=== PATIENT | female | born 1965 | race Caucasian/White ===

== ENCOUNTER 2018-12-04 09:04 | Inpatient (IN) | payer OTHER ==
[~2018-12-04] VITALS: Ht 165.1 cm; Wt 104.3 kg
[~2018-12-04 09:04] MED LIST: ACETAMINOPHEN-1 EAC1 PO; AMITRIPTYLINE H10 M3 PO; ANTIBIOTIC; BACTRIM DS TAB1 EACH PO; CIPRO500 MG PO; CLARITIN10 M2; CLONIDINE PO; CYMBALTA20 MG PO; FLAGYL500 MG PO; FLEXERIL PO; HYDROCODON-ACE1 EAC7 PO; LISINOPRIL20 MG PO; PREDNISONE 10 M10 MG; PRILOSEC 10MG C10 M1 PO
[2018-12-04 09:15] VITALS: BP 157/92
[2018-12-04] MEDS ORDERED: METFORMIN HCL500 M3 PO (09:35)
[2018-12-04] MEDS ORDERED: LIPITOR20 MG PO (09:35)
[2018-12-04 09:40] LABS: URINE BILIRUBIN NEGATIVE (Negative); URINE BLOOD 3+ (Negative); URINE CLARITY CLEAR; URINE COLOR YELLOW; URINE GLUCOSE-RANDOM NEGATIVE (Negative); URINE KETONES NEGATIVE (Negative); URINE LEUKOCYTES-REFLEX NEGATIVE (Negative); URINE NITRITE-REFLEX NEGATIVE (Negative); URINE PROTEIN 1+ (Negative); URINE SPECIFIC GRAVITY 1.025 (1.005-1.030); URINE UROBILINOGEN 0.2 E.U./dl (0.2-1.0)
[2018-12-04 09:42] LABS: ABSOLUTE BASOPHILS 0.1 thou/uL (0.0-0.2); ABSOLUTE EOSINOPHILS 0.2 thou/uL (0.0-0.7); ABSOLUTE LYMPHOCYTES 2.1 thou/uL (0.8-5.3); ABSOLUTE MONOCYTES 0.4 thou/uL (0.0-1.2); ABSOLUTE NEUTROPHILS 3.2 thou/uL (1.6-8.1); BASOPHILS 1.4 %; EOSINOPHILS 2.7 %; HEMATOCRIT 35.5 % (37.0-47.0); LYMPHOCYTES 34.9 %; MCH 26.9 pg (26.0-34.0); MCHC 33.7 g/dL (28.0-37.0); MCV 79.8 fL (80.0-100.0); MONOCYTES 6.6 %; MPV 9.2 fl. (7.2-11.1); NUCLEATED RBCS 0 /100WBC; PLATELET COUNT* 330 thou/uL (150-400); POLYS 54.4 %; RBC 4.45 mil/uL (4.20-5.00); RDW-CV 15.4 % (10.5-14.5)
[2018-12-04 09:53] LABS: CALCIUM 8.7 mg/dL (8.5-10.1); CREATININE 0.8 mg/dL (0.6-1.3); POTASSIUM 4.3 mmol/L (3.5-5.1)
[2018-12-04 09:58] LABS: BACTERIA-REFLEX 1-9 Few /HPF (None Seen); CASTS None Seen /LPF (None Seen); CRYSTALS None Seen /LPF (None Seen); MUCUS None Seen strn/LPF (None Seen); SQUAMOUS 4-10 Moderate /LPF (0-3); URINE RBC >20 Many /HPF (0-2); URINE WBC-REFLEX 0-5 Rare /HPF (0-5)
[2018-12-04 09:59] LABS: ALBUMIN 3.7 g/dL (3.4-5.0); TOTAL BILIRUBIN 0.4 mg/dL (<0.1-1.0); TOTAL PROTEIN 7.7 g/dL (6.4-8.2)
--- NOTE | 2018-12-04 11:29 | NUR ---
HOSPITALIST AT BEDSIDE
[2018-12-04 14:30] VITALS: BP 172/94
--- NOTE | 2018-12-04 16:55 | OP ---
[address] [address] OPERATIVE REPORT Name: CHRISTIE GODOY Room: [place] [address] ADM IN [facility]#: [id number] Admission: 12/04/18 Attend Phys: Jalen Iglesias MD Discharge: Date of : 63 Report #: [id number] THIS REPORT FOR: //name// CC: [facility] physician/PCP Jalen Iglesias DATE OF SERVICE: 12/04/2018 PREOPERATIVE DIAGNOSIS: Right renal pelvis stone. POSTOPERATIVE DIAGNOSIS: Right renal pelvis stone. PROCEDURE: Cystourethroscopy, right retrograde pyelogram, right ureteroscopy, laser lithotripsy, basket extraction of stone fragments and right ureteral stent placement (6-Cambodian x 24 cm). SURGEON: Mabel Leong MD ANESTHESIA: General. ESTIMATED BLOOD LOSS: None. COMPLICATIONS: None. SPECIMENS: Stone. INDICATIONS FOR PROCEDURE: The patient is a 53-year-old female with a history of right flank pain. She has had this actually intermittently for months. CT scan revealed a large 1 cm right renal pelvis obstructing stone. Options were discussed and she wishes to proceed with ureteroscopy. Risks of procedure were discussed including but not limited to infection, bleeding, injury to the urethra, bladder, ureter, need for secondary procedures, stent pain, cardiopulmonary complications. She voiced understanding and wished to proceed. DESCRIPTION OF PROCEDURE: After informed consent was obtained, the patient was taken back to the operating suite and placed supine. After induction of general anesthesia, she was placed in dorsal lithotomy position. Genitalia prepped and draped in standard fashion. Rigid cystoscopy was performed. Urethra and bladder mucosa were inspected. 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 She did have a moderate cystocele. UO's were orthotopic in position. Retrograde was performed on the right side. This revealed normal ureter with a large filling defect in the renal pelvis consistent with the stone with tjzp-xx-tjsekipc hydro. Sensor wire was threaded up into the kidney. The scope was removed. Using a dual-lumen catheter, a second wire was placed. 12/24 ureteral [place] [address] OPERATIVE REPORT Name: BOSTON GODOYNDA HENRIQUE Room: [address] IN [facility].#: [id number] Admission: 12/04/18 Attend Phys: Jalen Iglesias MD Discharge: Date of : 63 Report #: [id number] wire to the proximal ureter, leaving a safety wire in place. Flexible scope was advanced up into the kidney. The stone was encountered in the renal pelvis. There was a significant edematous response in the renal pelvis from the stone. Otherwise, all calices and everything else appeared normal and no other stones were noted. The holmium laser was used to break this up and it was quite a hard stone. Pieces were extracted with a 0 tip nitinol basket. Once all large fragments had been extracted, the calices were all carefully inspected and no large fragments remaining. Anything remaining was dust-like and should be passable. The scope was backed out along with the sheath and there was no injury from the sheath. Retrograde was again performed with a dual lumen to delineate the collecting system for stent placement. There were no filling defects or extravasation. A 6-Cambodian x 24 cm double-J stent was threaded over the wire. Good curl was seen within the upper pole and good curl was seen within the bladder under direct vision, the renal pelvis was quite narrow given the edema, so I did not feel I could get a good curl in the renal pelvis by readjusting the proximal curl so I left that in the upper pole. The bladder was then drained and the scope was removed. A 5 mL of lidocaine jelly were placed per urethra for local anesthesia and a 60 mg B and O suppository was placed per rectum for postoperative discomfort. She was awoken, extubated, and taken to recovery and she will be admitted back to the floor. She can be dismissed later if pain is controlled and she is afebrile. <ELECTRONICALLY SIGNED> By: Mabel Leong MD 12/04/18 1655 1627 [id number] Leong MD /nt
--- NOTE | 2018-12-04 16:58 | EKG ---
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
[2018-12-04 20:25] VITALS: BP 150/94
[2018-12-05] VITALS: BP 122/69
[2018-12-05 04:00] VITALS: BP 130/74
[2018-12-05 05:04] LABS: HEMATOCRIT 33.7 % (37.0-47.0); MCH 26.5 pg (26.0-34.0); MCHC 32.7 g/dL (28.0-37.0); MPV 9.4 fl. (7.2-11.1); RBC 4.16 mil/uL (4.20-5.00); WBC 8.8 thou/uL (4.0-11.0)
--- NOTE | 2018-12-05 05:08 | NUR ---
PT ADMITTED TO ROOM @ 2024 FROM PACU. ALERT AND ORIENTED. VSS ON 3L 02. ORIENTED TO ROOM AND CALL LIGHT. PAIN MEDS GIVEN THIS SHIFT. RELIEF NOTED. PT SLEPT WELL THIS SHIFT. UP TO BATHROOM ON STANDBY ASSIST. LFA IV WITH NS @ 150. ON 2ND BAG OF NS. FAMILY AT BEDSIDE EARLIER THIS SHIFT. CALL LIGHT WITHIN REACH. HOURLY ROUNDINGS MADE. RAMU CONTINUE TO MONITOR.
[2018-12-05 05:14] LABS: ALBUMIN 3.2 g/dL (3.4-5.0); CALCIUM 8.8 mg/dL (8.5-10.1); MAGNESIUM 1.9 mg/dL (1.8-2.4); POTASSIUM 4.5 mmol/L (3.5-5.1); TOTAL BILIRUBIN 0.3 mg/dL (<0.1-1.0); TOTAL PROTEIN 6.9 g/dL (6.4-8.2)
[2018-12-05 07:25] VITALS: BP 133/59
[2018-12-05] MEDS ORDERED: PHENAZOPYRIDIN100 M1 PO (08:32)
[2018-12-05] MEDS ORDERED: HYDROCODON-ACE1 EAC7 PO (08:32)
[2018-12-05] MEDS ORDERED: LEVSIN0.125 MG SUBLING (08:32)
[2018-12-05 08:53] VITALS: BP 133/59
[2018-12-05] MEDS ORDERED: CIPRO500 M1 PO (11:06)
[2018-12-05 11:08] VITALS: BP 133/59
--- NOTE | 2018-12-05 11:14 | NUR ---
PRESCRIPTIONS CALLED IN FROM UROLOGY, NEW PRESCRIPTION FOR CIPRO CALLED INTO PHARMACY AND LEFT VOICEMAIL. WILL CONTINUE TO MONITOR. AWAITING PT RIDE.
[2018-12-05 11:41] VITALS: BP 133/59
--- NOTE | 2018-12-05 11:41 | NUR ---
PT IV REMOVED. PT GIVEN DISCHARGE INFORMATION, CARE NOTES, AND PRESCRIPTIONS. PRESCRIPTIONS CALLED INTO PHARMACY. PT BELONGINGS GATHERED. PT LEFT VIA WHEELCHAIR WITH NURSING STAFF TO HOME. FALL RISK PRECAUTIONS IN PLACE. HOURLY ROUNDING COMPLETED.
[2018-12-06 02:06] LABS: HEPATITIS B SURFACE AG Negative (Negative)
[2018-12-15 08:11] LABS: STONE COLOR Orange (()); STONE COMMENT Note: (()); STONE URIC ACID 100 % (()); STONE WEIGHT 100.9 mg (())
== END 2018-12-05 11:43 | disposition home or self-care (01) | DRG 661 ==
LOC: M.ERS 09:04 → M.3W 10:54 → M.TBA-ER 10:54 → M.3W 20:25
PROVIDERS: Emergency Medicine; ADMIT Internal Medicine
PROC: 0TC68ZZ Extirpation of Matter from Right Ureter, Via Natural or Artificial Opening Endoscopic (ICD-10-PCS; principal; 2018-12-04)
PROC: 0T768DZ Dilation of Right Ureter with Intraluminal Device, Via Natural or Artificial Opening Endoscopic (ICD-10-PCS; principal; 2018-12-04)
PROC: BT1D1ZZ Fluoroscopy of Right Kidney, Ureter and Bladder using Low Osmolar Contrast (ICD-10-PCS; principal; 2018-12-04)
DX: N13.6 Pyonephrosis (principal); K75.9 Inflammatory liver disease, unspecified; K90.0 Celiac disease; E66.9 Obesity, unspecified; Z68.38 Body mass index [BMI] 38.0-38.9, adult; Z90.49 Acquired absence of other specified parts of digestive tract; Z90.710 Acquired absence of both cervix and uterus; Z88.2 Allergy status to sulfonamides; Z88.8 Allergy status to other drugs, medicaments and biological substances; Z28.21 Immunization not carried out because of patient refusal; Z79.899 Other long term (current) drug therapy

== ENCOUNTER 2018-12-07 09:25 | Inpatient (IN) | payer OTHER ==
[~2018-12-07] VITALS: Ht 165.1 cm; Wt 92.7 kg
[~2018-12-07 09:25] MED LIST changes: +CIPRO500 M1 PO; +LEVSIN0.125 MG SUBLING; +LIPITOR20 MG PO; +METFORMIN HCL500 M3 PO; +PHENAZOPYRIDIN100 M1 PO
[2018-12-07 09:28] VITALS: BP 171/87
[2018-12-07 09:59] LABS: CALCIUM 9.9 mg/dL (8.5-10.1); POTASSIUM 3.7 mmol/L (3.5-5.1)
[2018-12-07 10:09] LABS: ALBUMIN 4.2 g/dL (3.4-5.0); MAGNESIUM 1.9 mg/dL (1.8-2.4); TOTAL BILIRUBIN 0.9 mg/dL (<0.1-1.0); TOTAL PROTEIN 8.6 g/dL (6.4-8.2)
[2018-12-07 10:29] LABS: ABSOLUTE BASOPHILS 0.1 thou/uL (0.0-0.2); ABSOLUTE EOSINOPHILS 0.1 thou/uL (0.0-0.7); ABSOLUTE LYMPHOCYTES 1.4 thou/uL (0.8-5.3); ABSOLUTE MONOCYTES 0.7 thou/uL (0.0-1.2); ABSOLUTE NEUTROPHILS 6.3 thou/uL (1.6-8.1); BASOPHILS 0.6 %; EOSINOPHILS 0.9 %; HEMATOCRIT 34.4 % (37.0-47.0); HEMOGLOBIN 11.7 gm/dL (12.0-15.0); MCH 27.1 pg (26.0-34.0); MCV 79.6 fL (80.0-100.0); MONOCYTES 7.8 %; MPV 8.7 fl. (7.2-11.1); NUCLEATED RBCS 0 /100WBC; PLATELET COUNT* 323 thou/uL (150-400); POLYS 73.7 %; RBC 4.32 mil/uL (4.20-5.00); RDW-CV 15.5 % (10.5-14.5); WBC 8.5 thou/uL (4.0-11.0)
[2018-12-07 11:42] LABS: URINE BILIRUBIN NEGATIVE (Negative); URINE BLOOD 3+ (Negative); URINE CLARITY CLEAR; URINE COLOR YELLOW; URINE GLUCOSE-RANDOM NEGATIVE (Negative); URINE KETONES NEGATIVE (Negative); URINE LEUKOCYTES-REFLEX NEGATIVE (Negative); URINE PROTEIN NEGATIVE (Negative); URINE SPECIFIC GRAVITY <= 1.005 (1.005-1.030); URINE UROBILINOGEN 0.2 E.U./dl (0.2-1.0)
[2018-12-07 11:43] LABS: URINE NITRITE-REFLEX POSITIVE (Negative)
[2018-12-07 11:50] LABS: CASTS None Seen /LPF (None Seen); CRYSTALS None Seen /LPF (None Seen); MUCUS None Seen strn/LPF (None Seen); SQUAMOUS 0-3 Few /LPF (0-3); URINE WBC-REFLEX 0-5 Rare /HPF (0-5)
[2018-12-07 13:21] VITALS: BP 151/82
--- NOTE | 2018-12-07 13:58 | NUR ---
PT TO ROOM VIA CART. NSR ON MONITOR. ORIENTED TO ROOM,CALL LIGHT IN REACH. DTR AT BS. ORDERS REVIEWED
[2018-12-07 14:01] VITALS: BP 138/78
--- NOTE | 2018-12-07 17:05 | NUR ---
PT UP TO UNIT THIS AFTERNOON. PT REPORTS HEADACHE CONTROLLED WITH PO MEDS. IVF INFUSING.
[2018-12-07 20:00] VITALS: BP 165/89
--- NOTE | 2018-12-07 20:00 | NUR ---
RECEIVED REPORT AND ASSUMED CARE OF PT, ASSESSMENT COMPLETED. HOB ELEVATE, STATES FEELING LIKE I CAN'T TAKE A DEEP BREATH AND DROWNING. O2 SAT 92%. REASSURANCE GIVEN. TELEMETRY ON SHOWING SR. PT STATES URINE STILL BLOOD TINGED BUT IMPROVING. WILL CONT TO MONITOR AND ASSIST NEEDED.
[2018-12-08 00:31] VITALS: BP 123/77
[2018-12-08 04:00] VITALS: BP 138/80
[2018-12-08 05:15] LABS: HEMATOCRIT 34.3 % (37.0-47.0); HEMOGLOBIN 11.5 gm/dL (12.0-15.0); MCHC 33.6 g/dL (28.0-37.0); MCV 80.6 fL (80.0-100.0); MPV 8.9 fl. (7.2-11.1); RBC 4.25 mil/uL (4.20-5.00); RDW-CV 15.6 % (10.5-14.5)
[2018-12-08 05:31] LABS: ALBUMIN 3.3 g/dL (3.4-5.0); ALKALINE PHOSPHATASE 179 U/L (46-116); ANION GAP 12 mmol/L (7-16); BUN 11 mg/dL (7-18); CALCIUM 9.1 mg/dL (8.5-10.1); CHLORIDE 102 mmol/L (98-107); CHOLESTEROL 178 mg/dL (<200); CO2 24 mmol/L (21-32); CREATININE 0.8 mg/dL (0.6-1.3); GLUCOSE 148 mg/dL (70-99); HDL CHOLESTEROL 46 mg/dL (>40); LDL CHOLESTEROL 118 mg/dL (<100); PHOSPHORUS* 4.1 mg/dL (2.5-4.9); SGOT 99 U/L (15-37); SGPT 202 U/L (30-65); SODIUM 138 mmol/L (136-145); TC:HDL 3.9 Ratio (Not establshd); TOTAL BILIRUBIN 0.6 mg/dL (<0.1-1.0); TOTAL PROTEIN 7.6 g/dL (6.4-8.2); TRIGLYCERIDE 73 mg/dL (<150); TROPONIN-I LEVEL <0.06 ng/mL (<0.06); VLDL 15 mg/dL (<40)
[2018-12-08 05:39] LABS: SERUM ASSESSMENT Clear
--- NOTE | 2018-12-08 07:04 | NUR ---
SLEPT WELL. NO CHANGE IN ASSESSMENT WITH KEEN AND FEELING LIKE IT IS DIFFICULT TO BREATH. TELEMETRY CONT TO SHOW SR. HS GOALS OF REST AND SAFETY ACHIEVED. HOURLY ROUNDING OBSERVED.
--- NOTE | 2018-12-08 07:25 | NUR ---
CHANGE OF SHIFT BEDSIDE REPORT GIVEN PATIENT SEEN AT BEDSIDE, IN BED RESTING ASSUMED PATIENT CARE
[2018-12-08 08:00] VITALS: BP 175/90
--- NOTE | 2018-12-08 10:45 | NUR ---
Pt is A&O. Resides at home alone. Active and independent. Pt has a cpap through [facility] and a neb. No hx of HH or SNF. Goal is home at dc, no needs anticipated.
[2018-12-08 12:43] VITALS: BP 146/71
[2018-12-08 15:53] VITALS: BP 142/79
--- NOTE | 2018-12-08 16:32 | EKG ---
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 12/08/18 1632 9 9 Carlos Dan MD, [facility] /EPI
--- NOTE | 2018-12-08 18:05 | EKG ---
[place] [address] ELECTROCARDIOGRAM REPORT Name: GODOYCHRISTIE Room: [address] ADM IN .R.#: [id number] Admission: 12/07/18 Attend Phys: Hany Hanna Discharge: Date of : 63 Report #: [id number] THIS REPORT FOR: //name// 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
[2018-12-08 20:00] VITALS: BP 167/81
--- NOTE | 2018-12-08 20:00 | NUR ---
RECEIVED REPORT AND ASSUMED CARE OF PT, ASSESSMENT COMPLETED. PT CONCERNED ABOUT NOT RECEIVING IV ANTIBIOTICS WAS TOLD SHE NEEDED. REASSURANCE GIVEN THAT WBC WERE WITHIN NORMAL LIMITS AND PRILIMINARY BLOOD CULTURES WERE NEG. WILL NOTIFY DR FOR ORDERS. STATES HEADACHE IS BETTER. TELEMETRY ON SHOWING SR. WILL CONT TO MONITOR AND ASSIST NEEDED.
[2018-12-09] VITALS (7 sets, daily range): BP systolic 121–132; BP diastolic 50–77
--- NOTE | 2018-12-09 05:11 | NUR ---
SLEPT WELL TONIGHT. INDEPENDENT BRP WITH STEADY GAIT. [facility] HOME CPAP MACHINE. TELEMETRY CONT TO SHOW SR. TYLENOL GIVEN AT HS FOR KEEN BUT NO REQUEST FOR FURTHER MEDS. HS GOALS OF REST AND SAFETY ACHIEVED. HOURLY ROUNDING OBSERVED.
--- NOTE | 2018-12-09 19:05 | NUR ---
ASSUMED PT CARE AT 0700, PT A&OX4, VSS, RA, CABANA ATTENDANT TRACING SINUS RHYTHM, UP AD ANA MARIA. PT CONT TO C/O MILD HEADACHE, PRN PAIN MEDS ON BOARD, TOLERATING WELL. POSSIBLE DC TOMORROW, HOURLY ROUNDING COMPLETED.
[2018-12-10] VITALS: BP 116/66
--- NOTE | 2018-12-10 01:47 | NUR ---
ASSUMED CARE OF PT AT 1900. PT IS ALERT AND ORIENTED. VSS. PERRLA. NO COMPLAINTS OF PAIN. STEADY GAIT. PT IS IN SINUS RYTHM ON THE TELEMETRY. PT IS RESTING COMFORTABLY IN BED. RESPIRATIONS ARE EVEN AND NONLABORED. WILL CONTINUE TO MONITOR PT.
[2018-12-10 03:45] VITALS: BP 130/71
[2018-12-10 07:30] VITALS: BP 123/80
[2018-12-10 08:00] VITALS: BP 137/81
[2018-12-10 11:00] VITALS: BP 123/80
[2018-12-10] MEDS ORDERED: HYDROCHLOROTHIA25 M2 PO (11:22)
[2018-12-10] MEDS ORDERED: PAIN RELIEVER325 MG PO (12:10)
[2018-12-10 12:13] VITALS: BP 123/80
--- NOTE | 2018-12-10 13:07 | NUR ---
PT VSS, NSR ON TELE, PT UP AD ANA MARIA, A&OX4, REPORTED HEADACHE PAIN, GAVE TYLENOL. HOURLY ROUNDING PERFORMED, POSSESSIONS AND CALL LIGHT WITHIN REACH. REC. DISCHARGE ORDERS, REVIEWED WITH PT, ANSWERED QUESTIONS. REMOVED TELE MONITOR AND IV WITHOUT COMPLICATION. PT WALKED WITH NURSING STAFF TO FRONT DOOR, PICKED UP BY SON IN LAW.
== END 2018-12-10 13:25 | disposition home or self-care (01) | DRG 690 ==
LOC: M.ERS 09:25 → M.TBA-ER 12:19 → M.2W 12:19
PROVIDERS: Emergency Medicine Emergency Medical Services; ADMIT Internal Medicine
DX: N10 Acute pyelonephritis (principal); D86.9 Sarcoidosis, unspecified; M79.7 Fibromyalgia; J45.909 Unspecified asthma, uncomplicated; R74.0 Nonspecific elevation of levels of transaminase and lactic acid dehydrogenase [LDH]; N13.30 Unspecified hydronephrosis; Z88.2 Allergy status to sulfonamides; Z88.8 Allergy status to other drugs, medicaments and biological substances; Z79.899 Other long term (current) drug therapy; Z90.89 Acquired absence of other organs; Z90.49 Acquired absence of other specified parts of digestive tract; Z87.442 Personal history of urinary calculi; Z80.0 Family history of malignant neoplasm of digestive organs; Z87.891 Personal history of nicotine dependence; Z90.710 Acquired absence of both cervix and uterus